=== PATIENT | male | born 1995 | race Caucasian/White ===

== ENCOUNTER 2020-05-11 14:46 | Inpatient (IN) | payer MEDICAID ==
[~2020-05-11] VITALS: Ht 162.6 cm; Wt 68.1 kg
[2020-05-11] MEDS ORDERED: LORazepam 1 MG tablet PO PRN (15:40)
[2020-05-11] MEDS ORDERED: mag hydrox/Alum hydrox/simeth 30ml oral suspension PO PRN (15:40)
[2020-05-11] MEDS ORDERED: loperamide 2mg capsule PO PRN (15:40)
[2020-05-11] MEDS ORDERED: acetaminophen 325mg tablet PO PRN ×2 (15:40)
[2020-05-11] MEDS ORDERED: magnesium hydroxide 30ml (MOM) UD suspension PO PRN (15:40)
[2020-05-11 17:01] VITALS: BP 121/81
--- NOTE | 2020-05-11 18:03 | NUR ---
Nursing Admission Note Pt admitted to [facility] from [facility] after calling 911 and stating that he was going to look for a gun to kill himself and others that were bothering him. Pt arrived on unit, skin check performed with no findings. He showered and tolerated assessments well. Belongings inventoried and stored in locker. Pt reports no physical issues or problems and "just started on Abilify yesterday". Pt reports he is bothered at home by his family. They tell him to get a job and harrass him and he needs a break from them. Pt is guarded and moderatley paranoid about q's and what others are doing. He is overall pleasant and cooperative. He reports feeling like a demon was in his head years ago but is no longer a problem. Pt ate dinner with others.
[2020-05-11 19:00] VITALS: BP 125/72
[2020-05-11] MEDS ORDERED: ARIP5TAB14 PO (19:38)
[2020-05-11 20:31] VITALS: BP 125/72
--- NOTE | 2020-05-12 05:45 | NUR ---
Nursing Note Legal hold: 5150 Client on involuntary status for DTS/DTO Report received from nurse with use of SBAR: LILIANE Chauhan Why are they here: Pt admitted to [facility] from [facility] after calling 911 and stating that he was going to look for a gun to kill himself and others that were bothering him. Pt arrived on unit, skin check performed with no findings. He showered and tolerated assessments well. Belongings inventoried and stored in locker. Pt reports no physical issues or problems and "just started on Abilify yesterday". Pt reports he is bothered at home by his family. They tell him to get a job and harrass him and he needs a break from them. Pt is guarded and moderatley paranoid about q's and what others are doing. He is overall pleasant and cooperative. He reports feeling like a demon was in his head years ago but is no longer a problem. Pt ate dinner with others. Assessment What has happened this shift: Patient walking the unit at the beginning of shift. Pleasant and cooperative with care; no medications prescribed at this time. Patient did not report SI, HI this shift appears internally preoccupied. He may have delusional content thinking he's in care home as he asked a couple times when he goes "to the yard." Facility Practice Specialist asked if he meant the patio and explained he's in the hospital and not care home. Patient observed socializing appropriately. Participated in HS snack prior to bed; does not appear to be having difficulty sleeping. S/I, H/I: None reported A/VH: Appears preoccupied Sleep: Refer to sleep assessment ADL's: Independent Group attendance: No groups this shift Were meds taken: No meds ordered this shift Any med S/E: NA Mental Status Exam Appearance: Neat, appropriately dressed in unit attire. Eye contact: Fair Behavior: Pleasant and cooperative, socializing, walking the unit Speech: Clear, audible, regular rate/rhythm Mood: Pleasant Affect: Congruent Thought process: Circumstantial Thought Content: Going to the patio Cognition: Intact Insight: Poor Judgment: Poor Interventions PRN's used: None Therapeutic interventions: 1:1 assessment, active listening, monitoring and intervention as needed, reality orientation, Q15 minute safety checks. Restraints/seclusion/emergency medication: NA Justification: Patient requires a safe and supportive environment
[2020-05-12 07:35] VITALS: BP 119/69
[2020-05-12 07:46] LABS: HEMOGLOBIN A1C 5.4 % (4.5-6.2)
[2020-05-12 08:00] LABS: CHOL/HDL RATIO 3.2 (0.00-4.99); CHOLESTEROL 139 MG/DL (0-200); HDL CHOLESTEROL 44 MG/DL (35-60); LDL CHOLESTEROL 90 MG/DL (50-100); TRIGLYCERIDES 72 MG/DL (20-135)
[2020-05-12] MEDS ORDERED: aripiprazole 5mg tablet PO SCH ×2 (08:00→21:00)
--- NOTE | 2020-05-12 10:00 | NUR ---
Group Therapy: Process Group This Clinicians goals for this process group were as follows: (1) Ask scaling questions about Patients current anxiety, depression, and irritability symptoms as a check-in. (2) Share psychoeducation about emotional escalation as it relates to stress and negative symptoms, Fight, flight, freeze. (2) Provide psychoeducation on the STOPP acronym: Stop, Take a Breath, Observe the situation, Put things into perspective, and, Practice what works. (3) Share psychoeducation on principles of mindfulness and emotional relaxation techniques that Patients may utilize to reduce the acuity of unwanted emotional escalation. (5) Process Clients thoughts and reflections on this topic within the group milieu. Patient identified experiencing the following levels of anxiety, depression, and anger/irritability while present in the group milieu. Anxiety: 10/22 Depression: 10/22 Anger/irritability: 10/22 Patient presented as open and cooperative within the group milieu. Patient was dressed in the [facility] scrubs within the milieu. Patient was verbally subdued and nonobtrusive within the group milieu. Patient had a noticeable smile, and appeared to be in calm, euthymic mood with congruent affect during session. On one occasion, this Clinician observed Patient laughing during a moment in time in which he wasn't being addressed by this Clinician or by any of his peers within the group milieu, which may suggest, per this Clinician's impression, that he may have been responding to internal stimuli during the process group. Patient reported experiencing low symptoms of anxiety, depression, and irritability--all being 1/10. Patient quietly left the group milieu after about 10 minutes and did not return. Delvin Banuelos MA, CUSTOMER SERVICES MANAGER Addendum: 05/12/20 at 1133 by Delvin Banuelos Amended: Links added.
--- NOTE | 2020-05-12 14:03 | NUR ---
Nursing Note Legal hold: 5150 Client on involuntary status for DTS/DTO Report received from nurse with use of SBAR: Sandrine Martínez RN Why are they here: Pt admitted to [facility] from [facility] after calling 911 and stating that he was going to look for a gun to kill himself and others that were bothering him. Pt reports no physical issues or problems and was just started on Abilify. Pt reports he is bothered at home by his family. They tell him to get a job and harass him and he needs a break from them. Pt is guarded and moderately paranoid about what others are doing. He is overall pleasant and cooperative. He reports feeling like a demon was in his head years ago but is no longer a problem. Assessment What has happened this shift: Pt was up before breakfast, he was cooperative with taking his Abilify. Though pt is A/O X 4, his speech is moderately disorganized, he seems to have difficulty focusing and is easily distracted. It is difficult to follow his line of thinking at times. Pt smiles throughout morning assessment. Pt indicated that he believed he was here voluntarily, stated, "they told me a 5150 was voluntary." Education provided on 5150 mental health hold. Pt stated, "they lied to me." Pt rambled on about being afraid when he thinks someone is mad at him. Stated that there is this girl at his house that was mad at him and he thought she wanted to hit him. Pt clarified that "this girl" was his brother's 15 year old daughter. Pt denied depression/AH/VH/SI. When asked about HI, pt replied, "nah, I'm not like that. " Pt mentioned that he has been at [facility] previously, he believes it was [facility] [place]. S/I, H/I: Pt denies. A/VH: Pt denies. Sleep: Pt slept 6.5 hours last night per sleep assessment. ADL's: Independent Group attendance: Yes Were meds taken: Yes Any med S/E: None noted or reported. Mental Status Exam Appearance: Neat, clean, short young male dressed in clean, green hospital scrubs. Eye contact: Good Behavior: Pleasant, cooperative, watches TV, makes phone calls, socializes with peers. Speech: Disorganized speech, somewhat rapid/mumbled and soft. Mood: Good Affect: Happy, smiles frequently Thought process: Somewhat disorganized and difficult to follow. Thought Content: Thought he was here voluntarily, someone lied to him. Cognition: A/O X 4 Insight: Poor Judgment: Fair Interventions PRN's used: None Therapeutic interventions: 1:1 assessment, establishment of rapport, active listening, therapeutic conversation, medication administration/education/monitoring, mental health hold education, reality orientation, Q 15 minute safety checks. Restraints/seclusion/emergency medication: NA Justification: Pt requires crisis stabilization and medication adjustment and monitoring in a safe and therapeutic environment until stable.
--- NOTE | 2020-05-12 14:29 | NUR ---
PSYCHOSOCIAL ASSESSMENT Mitch is a 24 y/o male who was placed on 5150 for danger to self and others by [facility] hog worker. Mitch called the crisis line and 911 multiple times making suicidal and homicidal statements. He reported to Hearing Aid Fitter and hog worker that he was looking for a gun to shoot others and himself. He has a history of hospitalizations, last one being in Oct or Nov of this year. He is currently prescribed 5mg of Abilify. He was a poor historian. He was paranoid and wanted to know what bond writer was writing down. He reported he felt like his family was trying to harm him. He reported his brother is jealous of him. He also reported he was hospitalized in the past when he thought a ghost was following him. He reported he can return home upon discharge. He reported he lives with his parents and siblings in [place]. GILSON Segal Addendum: 05/12/20 at 1430 by Maria Del Carmen Masters Amended: Links added.
[2020-05-12 19:58] VITALS: BP 101/74
[2020-05-12] MEDS ORDERED: aripiprazole 400mg suspension ER syringe IM ONE (21:00)
[2020-05-12] MEDS: Melatonin 3mg tablet PO PRN (21:30)
--- NOTE | 2020-05-12 22:45 | NUR ---
Nursing Note Legal hold: 5150 Client on involuntary status for DTS/DTO Report received from nurse with use of SBAR: LILIANE Jurado Why are they here: Pt admitted to [facility] from [facility] after calling 911 and stating that he was going to look for a gun to kill himself and others that were bothering him. Pt arrived on unit, skin check performed with no findings. He showered and tolerated assessments well. Belongings inventoried and stored in locker. Pt reports no physical issues or problems and "just started on Abilify yesterday". Pt reports he is bothered at home by his family. They tell him to get a job and harrass him and he needs a break from them. Pt is guarded and moderatley paranoid about q's and what others are doing. He is overall pleasant and cooperative. He reports feeling like a demon was in his head years ago but is no longer a problem. Pt ate dinner with others. Assessment What has happened this shift: Patient walking the unit at the beginning of shift. Pleasant and cooperative with care. Pt stated that "some people here make me nervous," but would not elaborate. Pt is friendly and smiles a lot when interacting with others. pt met with Mary HERNANDEZ today and was prescribed abilify and melatonin but pt requested abilify in the am. verbal order from Mary to change abilify to an am schedule. pt would only take 3 mg of his melatonin. he appeared to be paranoid and resistant to taking pills. Pt appears to be confused and is difficult to have a conversation with, as he is easily distracted. S/I, H/I: None reported A/VH: denies Sleep: Refer to sleep assessment ADL's: Independent Group attendance: No groups this shift Were meds taken: No meds ordered this shift Any med S/E: NA Mental Status Exam Appearance: Neat, appropriately dressed in unit attire. Eye contact: Fair Behavior: Pleasant and cooperative, socializing, walking the unit Speech: Clear, audible, regular rate/rhythm Mood: Pleasant Affect: Congruent Thought process: Circumstantial Thought Content: meds Cognition: Intact Insight: Poor Judgment: Poor Interventions PRN's used: None Therapeutic interventions: 1:1 assessment, active listening, monitoring and intervention as needed, reality orientation, Q15 minute safety checks. Restraints/seclusion/emergency medication: NA Justification: Patient requires a safe and supportive environment, medication adjustments
[2020-05-13 07:36] VITALS: BP 129/78
[2020-05-13] MEDS: ARIPIPRAZOLE 10 MG TABLET PO SCH (07:50)
[2020-05-13 07:56] VITALS: BP 129/78
--- NOTE | 2020-05-13 13:11 | NUR ---
Nursing Note Legal hold: 5150 Client on involuntary status for DTS/DTO Report received from nurse with use of SBAR: Sandrine Martínez RN Why are they here: Pt admitted to [facility] from [facility] after calling 911 and stating that he was going to look for a gun to kill himself and others that were bothering him. Pt reports no physical issues or problems and was just started on Abilify. Pt reports he is bothered at home by his family. They tell him to get a job and harass him and he needs a break from them. Pt is guarded and moderately paranoid about what others are doing. He is overall pleasant and cooperative. He reports feeling like a demon was in his head years ago but is no longer a problem. Assessment What has happened this shift: Pt was cooperative with his Abilify 10 mg at breakfast. He thanked this nurse then stated he had just about been going to ask if he was getting the Abilify this morning. Today is the pt's birthday. His peers sang the happy birthday song to him during breakfast. The pt smiled and then looked at this RN and said, "I need some money though!" while making a hand gesture rubbing his thumb back and forth across the other fingers of his right hand, a gesture commonly recognized as a request for money. When later asked pt how he was doing today, pt replied, "I'm okay." Pt denied Depression, anxiety, AH/VH/HI/SI, he also denied feeling fearful. No unsafe behaviors noted. S/I, H/I: Pt denies. A/VH: Pt denies. Sleep: Pt slept 6 hours last night per sleep assessment. ADL's: Independent Group attendance: No, pt stated he didn't go because he was sleeping, encouraged pt to attend groups daily for his benefit. Were meds taken: Yes Any med S/E: None noted or reported. Mental Status Exam Appearance: Neat, clean, short young male dressed in clean, green hospital scrubs. Eye contact: Good Behavior: Pleasant, cooperative, watches TV, makes phone calls, socializes with peers. Speech: Clear, audible Mood: Good, "I'm okay." Affect: Happy, smiles frequently Thought process: Linear Thought Content: Wants money for his birthday. Cognition: A/O X 4 Insight: Poor Judgment: Fair Interventions PRN's used: None Therapeutic interventions: 1:1 assessment, active listening, therapeutic conversation, medication administration/education/monitoring, encouragement to attend groups, reality orientation, Q 15 minute safety checks. Restraints/seclusion/emergency medication: NA Justification: Pt requires crisis stabilization and medication adjustment and monitoring in a safe and therapeutic environment until stable.
--- NOTE | 2020-05-13 16:59 | NUR ---
Pt approached this RN and asked to speak with me. He motioned me down the hallway to the area in front of the front door. Pt asked why he was given a pink pill this morning instead of the blue one he normally takes. Explained to pt that his Abilify dose had been increased from 5 mg to 10 mg (had already told him this today when gave him the medication.) Pt took an argumentative tone with this RN, began speaking rapidly with mild posturing saying that the 5 mg pill works for him but he didn't feel anything from the 10 mg pill. Explained that he had only taken the first dose this morning and it may take a few days for him to feel a difference. Pt was insistent that the 5 mg pill works better for him and he had been taking it at home. Reality orientation provided that it may not have been working because he ended up here on an acute psych unit for a reason. Reminded pt that he had made statements of wanting to kill himself and/or others. Pt became hostile, pt denied ever saying this, pt indicated that the person he spoke with lied in her notes about this, pt told this RN to lower her voice because he didn't want anyone to hear this. Encouraged pt to speak with PA about the dosage change. Pt continued to argue, said that he isn't being forced to take pills and he doesn't have to take it and he can leanne this place if we try to make him. Reminded pt that he was here for treatment and that if he wasn't going to participate by going to groups and taking his medication that maybe he didn't need to be here. Pt was paranoid during conversation. Looked at tech doing 15 minute checks with the rounds book and asked what he was doing, demanded to know what he was writing down. Pt angrily stated that he was sleeping during group, "so I don't know what you're trippin' on!" Pt began yelling at this nurse. Pt continued verbalizing that he doesn't have to take his medication if he doesn't want to and if I bring it to him tomorrow he's going to write it down, more threats made regarding legal action. This RN told pt that these were his decisions to make, again encouraged him to speak with the provider about the medication dosage. This RN walked away from the pt. Pt returned to his room.
[2020-05-13 20:00] VITALS: BP 132/76
[2020-05-13] MEDS: Melatonin 3mg tablet PO PRN (21:26)
--- NOTE | 2020-05-13 23:21 | NUR ---
Nursing Note Legal hold: 5150 Client on involuntary status for DTS/DTO Report received from nurse with use of SBAR: Rhiannon MOMIN Why are they here: Pt admitted to [facility] from [facility] after calling 911 and stating that he was going to look for a gun to kill himself and others that were bothering him. Pt reports no physical issues or problems and was just started on Abilify. Pt reports he is bothered at home by his family. They tell him to get a job and harass him and he needs a break from them. Pt is guarded and moderately paranoid about what others are doing. He is overall pleasant and cooperative. He reports feeling like a demon was in his head years ago but is no longer a problem. Assessment What has happened this shift: Pt was up and about the unit talking with peers and staff. Pt asked this fha underwriter if sombody ws to throw a chair at him would would he get in trouble if he fought back. It was explained to him that fighting was not allowed and staff is here to monitor his and his peers Bx. Then he asked could he talk to security if some one or staff got mad at him. Explained that know one here will hurt him and that we keep a clode eye on things. Pt said ok thanks and wondered the halls for awhile then went to bed. S/I, H/I: Pt denies. A/VH: Pt denies. Sleep: See sleep log ADL's: Independent Group attendance: No, pt stated he didn't go because he was sleeping, encouraged pt to attend groups daily for his benefit. Were meds taken: Yes Any med S/E: None noted or reported. Mental Status Exam Appearance: Neat, clean, short young male dressed in clean, green hospital scrubs. Eye contact: Good Behavior: Pleasant, cooperative, watches TV, makes phone calls, socializes with peers. Speech: Clear, audible Mood: Good, "I'm okay." Affect: Happy, smiles frequently Thought process: Linear Thought Content: Wants money for his birthday. Cognition: A/O X 4 Insight: Poor Judgment: Fair Interventions PRN's used: Melatonin for sleep. Therapeutic interventions: 1:1 assessment, active listening, therapeutic conversation, medication administration/education/monitoring, encouragement to attend groups, reality orientation, Q 15 minute safety checks. Restraints/seclusion/emergency medication: NA Justification: Pt requires crisis stabilization and medication adjustment and monitoring in a safe and therapeutic environment until stable.
[2020-05-14 08:00] VITALS: BP 107/62
[2020-05-14] MEDS: ARIPIPRAZOLE 10 MG TABLET PO SCH (08:17)
--- NOTE | 2020-05-14 10:46 | NUR ---
Nursing Progress Note: Legal hold: 5150 Client on involuntary status for DTS/DTO Report received from nurse with use of SBAR: Sandrine Steele RN Why are they here: Pt admitted to [facility] from [facility] after calling 911 and stating that he was going to look for a gun to kill himself and others that were bothering him. Pt reports no physical issues or problems and was just started on Abilify. Pt reports he is bothered at home by his family. They tell him to get a job and harass him and he needs a break from them. Pt is guarded and moderately paranoid about what others are doing. He is overall pleasant and cooperative. He reports feeling like a demon was in his head years ago but is no longer a problem. Assessment What has happened this shift: Received pt. sleeping in bed at the beginning of the shift, he awoke and attended breakfast in the Group Room. Afterwards, pt. requested to shower, and was able to complete ADLs independently. 1:1 completed at bedside, pt. presents as cooperative, however restless. He denies H/I or any further S/I, he laughs somewhat inappropriately and states, "I said I was suicidal, but that was not true." Pt. also denies any A/V/RUIZ or thoughts that others want to hurt him, and does not present as internally preoccupied. Pt. is aware that his 5150 hold expires today, and is hoping to go home with his family. When questioned by this property underwriter whether he and his family are getting along now, pt. smiles and agrees. He states, "They wanted to kick me out because they thought I wouldn't pay rent, but I'm going to, or find a place of my own." Pt. 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 He reports he will have one month to find his own place. Pt. later attends patio time with others, and is observed to be interacting appropriately and playing ball. S/I, H/I: Denies A/VH: Denies, does not appear internally preoccupied Sleep: Pt. reports he slept well, however sleep hours are only 5.75 ADL's: Independent Group attendance: Pt. attends patio time with others Were meds taken: Yes Any med S/E: None Mental Status Exam Appearance: Neat and appropriately dressed in hospital attire Eye contact: Good Behavior: Cooperative and restless Speech: Soft, WNL Mood: Pleasant with restlessness Affect: Animated Thought process: WNL Thought Content: Preoccupation with desire to discharge Cognition: A&O X4 Insight: Fair Judgment: Fair Interventions PRN's used: None Therapeutic interventions: Introduced self and established rapport, ensured contract for safety, maintained a safe and therapeutic environment, provided clear and simple instructions, monitored behaviors and need for intervention, and maintained a Q 15min safety checks. Restraints/seclusion/emergency medication: N/A Justification of Continued Inpatient Treatment: Per MARY Jiang, pt. requires medications titration and a safe and therapeutic environment to prevent decompensation and readmission.
[2020-05-14] MEDS ORDERED: ARIP10TA15 PO (11:21)
--- NOTE | 2020-05-14 15:11 | NUR ---
Discharge Note: Pt. discharged from unit at 1511, and ambulated to his family's car accompanied by Mehran Hogan. He is able to contract for the safety of himself and others and denies all MH s/s. Discharge packet reviewed with pt. by this pattern chart writer, and he reported understanding. Pt. will follow-up with [facility] and [facility], and will make his own appointment. Pt. is retuning home with his family and sent with a hard-copy of his prescription. No smoking cessation needed.
== END 2020-05-14 18:38 | disposition home or self-care (01) | DRG 750 ==
LOC: ADULT MH 15:10
PROVIDERS: ADMIT Psychiatry & Neurology Psychiatry; ATTEND Internal Medicine
DX: F20.0 Paranoid schizophrenia (principal); F32.9 Major depressive disorder, single episode, unspecified; Z81.8 Family history of other mental and behavioral disorders; R45.851 Suicidal ideations; F19.11 Other psychoactive substance abuse, in remission
CPT/HCPCS: 36415; 80061; 83036; 87081